=== PATIENT | male | born 1965 | race Caucasian/White ===

== ENCOUNTER 2024-12-31 01:13 | Emergency (ER) | payer SELFPAY ==
[~2024-12-31] VITALS: Ht 167.6 cm; Wt 72.6 kg
[2024-12-31] MEDS: LACTATED RINGERS 1000ML IV STA (01:42)
[2024-12-31 01:46] VITALS: BP 117/68; PULSE 73; RESP 18; TEMP 98.9; O2SAT 94
[2024-12-31 01:47] LABS: BASOPHILS # (AUTO) 0.04 K/uL (0.00-0.20); BASOPHILS % (AUTO) 0.5 % (0.0-5.0); EOSINOPHILS # (AUTO) 0.23 K/uL (0.00-0.70); EOSINOPHILS % (AUTO) 2.6 % (0.0-8.0); HEMATOCRIT 48.9 % (42-54); IMMATURE GRANULOCYTE ABSOLUTE 0.03 K/uL (0-1); LYMPHOCYTES % (AUTO) 45.4 % (21.0-51.0); MEAN CORPUSCULAR HEMOGLOBIN 31.2 pg (27.0-33.0); MEAN CORPUSCULAR HGB CONC 33.3 g/dL (32.0-36.0); MEAN CORPUSCULAR VOLUME 93.5 fL (79-99); MONOCYTES # (AUTO) 0.8 K/uL (0.1-1.0); MONOCYTES % (AUTO) 9.3 % (3.0-13.0); NEUTROPHILS # (AUTO) 3.7 K/uL (1.8-7.7); NEUTROPHILS % (AUTO) 41.9 % (40.0-77.0); PLATELET COUNT (AUTO) 203 K/uL (130-400); RED BLOOD CELL COUNT(AUTO) 5.23 MIL/uL (4.50-6.20); RED CELL DISTRIBUTION WIDTH 15.4 % (11.0-15.5); WHITE BLOOD COUNT (AUTO) 8.8 K/uL (4.8-10.8)
--- NOTE | 2024-12-31 01:53 | ERN ---
General Chief Complaint: Psych Evaluation Stated Complaint: SI Time Seen by MD: 01:18 History of Present Illness Initial Comments Patient is a 59-year-old male with asthma and alcohol abuse. He initially called [employer] because he was having shortness of breath and when they arrived he started talking about often himself. He has been drinking all day. They bring him to the hospital for a suicide watch and also nebulizer therapy. Patient does have a history of attending AA meetings in being sober for a long period of time but after his , who he met in AA, he started drinking again. Timing/Duration: 24 hours Allergies: Coded Allergies: No Known Drug Allergies (Unverified Allergy, Unknown, 12/31/24) Past Medical History Past Medical History: COPD, Hypertension Medical History Other: PTSD Past Surgical History: None Constitutional: (-) chills, (-) diaphoresis, (-) fever, (-) malaise, (-) weakness, (-) other documentation EENTM: (-) eye pain, (-) blurred vision, (-) tearing, (-) double vision, (-) ear pain, (-) ear discharge, (-) nose pain, (-) nose congestion, (-) throat pain, (-) Throat swelling, (-) mouth pain, (-) tooth pain, (-) mouth swelling, (-) other documentation Respiratory: (+) cough, (+) stridor, (+) wheezing Cardiovascular: (-) chest pain, (-) edema, (-) palpitations, (-) syncope, (-) dyspnea on exertion, (-) other documentation Gastrointestinal/Abdominal: (-) nausea, (-) vomiting, (-) diarrhea, (-) abdominal pain, (-) abdominal distention, (-) constipation, (-) rectal bleeding, (-) dark stool/melena, (-) other documentation Musculoskeletal: (-) Neck pain, (-) back pain, (-) Flank Pain, (-) joint pain, (-) joint swelling, (-) muscle pain, (-) muscle stiffness, (-) gout, (-) other documentation Skin: (-) laceration, (-) contusion, (-) abrasion, (-) abscess, (-) rash, (-) change in color, (-) change in hair, (-) change in nails, (-) diaphoresis, (-) dryness, (-) other documentation Neuro: (-) altered mental status, (-) headache, (-) syncope, (-) paralysis, (-) numbness, (-) seizure, (-) pre-existing deficit, (-) tremors, (-) weakness, (-) dizziness, (-) slurred speech, (-) vertigo, (-) other documentation Physical Exam General Appearance: (+) mild distress Orientation: (+) alert, (+) oriented x 3 Head/Face Trauma: No Eye: bilateral eye normal inspection, bilateral eye PERRL, bilateral eye EOMI Ear, Nose, Throat: (+) hearing grossly normal, (+) normal ENT inspection, (+) normal pharynx Neck: (+) normal inspection, (+) supple, (+) full range of motion Respiratory: (+) chest non-tender, (+) decreased breath sounds, (+) rhonchi, (+) stridor, (+) wheezing Heart: (+) regular, (+) no gallop Vascular: (+) no edema Gastrointestinal: (+) soft, (+) non-tender, (+) bowel sound present Results Laboratory and Microbiology Lab and Micro Result Laboratory Tests Test 12/31/24 01:40 12/31/24 02:06 White Blood Count 8.8 K/uL (4.8-10.8) Red Blood Count 5.23 MIL/uL (4.50-6.20) Hemoglobin 16.3 g/dL (14.0-18.0) Hematocrit 48.9 % (42-54) Mean Corpuscular Volume 93.5 fL (79-99) Mean Corpuscular Hemoglobin 31.2 pg (27.0-33.0) Mean Corpuscular Hemoglobin Concent 33.3 g/dL (32.0-36.0) Red Cell Distribution Width 15.4 % (11.0-15.5) Platelet Count 203 K/uL (130-400) Mean Platelet Volume 10.8 fL (7.5-10.5) H Immature Granulocyte % (Auto) 0.3 % (0-1) Neutrophils (%) (Auto) 41.9 % (40.0-77.0) Lymphocytes (%) (Auto) 45.4 % (21.0-51.0) Monocytes (%) (Auto) 9.3 % (3.0-13.0) Eosinophils (%) (Auto) 2.6 % (0.0-8.0) Basophils (%) (Auto) 0.5 % (0.0-5.0) Neutrophils # (Auto) 3.7 K/uL (1.8-7.7) Lymphocytes # (Auto) 4.0 K/uL (1.0-4.8) Monocytes # (Auto) 0.8 K/uL (0.1-1.0) Eosinophils # (Auto) 0.23 K/uL (0.00-0.70) Basophils # (Auto) 0.04 K/uL (0.00-0.20) Absolute Immature Granulocyte (auto 0.03 K/uL (0-1) Nucleated Red Blood Cells 0.0 % (0.0-0.19) Sodium Level 143 mmol/L (136-145) Potassium Level 3.5 mmol/L (3.5-5.1) Chloride Level 105 mmol/L (101-111) Carbon Dioxide Level 27 mmol/L (21-32) Blood Urea Nitrogen 14 mg/dL (7-18) Creatinine 1.1 mg/dL (0.5-1.3) Glomerular Filtration Rate Calc 77 mL/min (>90) Random Glucose 111 mg/dL (70-105) H Total Calcium 9.0 mg/dL (8.5-10.1) Salicylates Level 5.0 mg/dL (2.8-20.0) Acetaminophen Level < 1 mcg/mL (10-29) L Serum Alcohol 258 mg/dL (0-10) H Urine Color LIGHT-YELLOW (YELLOW) Urine Appearance CLEAR (CLEAR) Urine pH 5.5 (5.0-8.0) Urine Specific [place] 1.011 (1.001-1.031) Urine Protein NEGATIVE mg/dL (NEGATIVE) Urine Glucose (UA) NEGATIVE mg/dL (NEGATIVE) Urine Ketones NEGATIVE mg/dL (NEGATIVE) Urine Occult Blood NEGATIVE (NEGATIVE) Urine Nitrate NEGATIVE (NEGATIVE) Urine Bilirubin NEGATIVE mg/dL (NEGATIVE) Urine Urobilinogen 0.2 mg/dL (0.2-1.0) Urine Leukocyte Esterase NEGATIVE Wilber/uL Urine Opiates Screen NEGATIVE (NEGATIVE) Urine Barbiturates Screen NEGATIVE (NEGATIVE) Urine Phencyclidine Screen NEGATIVE (NEGATIVE) Urine Amphetamines Screen NEGATIVE (NEGATIVE) Urine Benzodiazepines Screen NEGATIVE (NEGATIVE) Urine Cocaine Screen NEGATIVE (NEGATIVE) Urine Marijuana (THC) Screen NEGATIVE (NEGATIVE) MDM I discussed with the patient going back to AA meetings. I wrote for a nebulizer therapy. I will also order salicylate, acetaminophen, urine tox screen and blood alcohol levels so that I can medically clear the patient if he decides to go into rehab. I will also get a chest x-ray. The patient left AMA. ED Course Orders Procedure Category Date Status Time Basic Metabolic Panel LAB 12/31/24 Complete 01: Cbc With Differential LAB 12/31/24 Complete 01:32 Urinalysis Profile LAB 12/31/24 Complete 01:32 Drug Screen Urine LAB 12/31/24 Complete 01:32 Acetaminophen LAB 12/31/24 Complete 01:32 Salicylate LAB 12/31/24 Complete 01:32 Lactated Ringers PHA 12/31/24 Complete 1000ml (Lactated 01:32 Alcohol, Blood LAB 12/31/24 Complete 01:40 Ipratropium/Albuterol PHA 12/31/24 Complete Neb (Duoneb) 02:00 Chest 1vw RAD 12/31/24 Logged 01:53 Ipratropium/Albuterol PHA 12/31/24 Complete Neb (Duoneb) 02:30 Current Medications Medications (Trade) Dose Ordered Sig/David Route PRN Reason Start Time Stop Time Status Last Admin Dose Admin Albuterol (DUOneb) 1 udvial Q20M PRN IH SHORTNESS OF BREATH 12/31/24 02:00 12/31/24 02:18 DC Albuterol (DUOneb) 3 udvial ONCE ONCE IH 12/31/24 02:30 12/31/24 02:31 DC Lactated Ringer's (Lactated Ringers 1000ml) 1,000 ml BOLUS STAT IV 12/31/24 01:32 12/31/24 01:38 DC 12/31/24 01:42 Vital Signs Date Time Temp Pulse Resp B/P (MAP) Pulse Ox O2 Delivery O2 Flow Rate FiO2 12/31/24 01:46 99.0 73 18 117/68 94 Nasal Cannula* 2 28 5/20/25 01:32 98.1 80 20 117/78 95 Nasal Cannula 2.0 DX & DISP Disposition: AMA Departure Impression: Primary Impression: Alcohol abuse Condition: Stable Referrals: SELF,REFERRAL (PCP) BRYAN TURNER MD December 31, 2024 01:53
[2024-12-31 01:54] LABS: CARBON DIOXIDE 27 mmol/L (21-32); CHLORIDE 105 mmol/L (101-111); CREATININE 1.1 mg/dL (0.5-1.3); GLOMERULAR FILTR. RATE CALC 77 mL/min (>90); GLUCOSE,RANDOM 111 mg/dL (70-105); POTASSIUM 3.5 mmol/L (3.5-5.1); SODIUM SERUM 143 mmol/L (136-145); UREA NITROGEN, BLOOD 14 mg/dL (7-18)
[2024-12-31 02:00] LABS: ALCOHOL, BLOOD 258 mg/dL (0-10)
[2024-12-31] MEDS ORDERED: IpraTROPium/alBUTERol SULFATE 3 ML SOLUTION IH PRN (02:00)
[2024-12-31 02:04] LABS: ACETAMINOPHEN < 1 mcg/mL (10-29)
[2024-12-31 02:27] LABS: APPEARANCE,URINE CLEAR (CLEAR); BILIRUBIN,URINE NEGATIVE (NEGATIVE); COLOR,URINE LIGHT-YELLOW (YELLOW); GLUCOSE, URINE (UA) NEGATIVE (NEGATIVE); KETONES,URINE NEGATIVE (NEGATIVE); LEUKOCYTE ESTERASE ,URINE NEGATIVE Leu/uL (NEGATIVE); NITRATE,URINE NEGATIVE (NEGATIVE); OCCULT BLOOD,URINE NEGATIVE (NEGATIVE); PH,URINE 5.5 (5.0-8.0); PROTEIN,URINE NEGATIVE (NEGATIVE); UROBILINOGEN,URINE 0.2 mg/dL (0.2-1.0)
[2024-12-31] MEDS ORDERED: IpraTROPium/alBUTERol SULFATE 3 ML SOLUTION IH ONE (02:30)
[2024-12-31 02:32] LABS: ADD UA MICROSCOPIC NO
[2024-12-31 02:34] LABS: AMPHET/METH SCREEN,URINE NEGATIVE (NEGATIVE); BARBITURATE SCREEN, URINE NEGATIVE (NEGATIVE); BENZODIAZEPINES SCREEN,URINE NEGATIVE (NEGATIVE); CANNABINOID SCREEN,URINE NEGATIVE (NEGATIVE); COCAINE SCREEN,URINE NEGATIVE (NEGATIVE); OPIATE SCREEN,URINE NEGATIVE (NEGATIVE); PHENCYCLIDINE SCREEN,URINE NEGATIVE (NEGATIVE)
--- NOTE | 2024-12-31 03:10 | NUR ---
PT LEFT AMA, PAPERWORK SIGNED AND PLACED IN THE CHART. MD AND RN EXPLAINED RISKS OF LEAVING AMA WITH PT PRESENTING WITH SOB AND DESATING ON RA. PT CONTINUED TO EXPRESS DESIRES TO LEAVE AMA. IV REMOVED, HPD INFORMED - SPOKE WITH ANNITA. [employer] MACHINE AND SECURITY INFORMED.
== END 2024-12-31 03:18 | disposition left against medical advice (07) ==
LOC: EDH 01:13
DX: F10.10 Alcohol abuse, uncomplicated (principal); I10 Essential (primary) hypertension; J44.89 Other specified chronic obstructive pulmonary disease
CPT/HCPCS: 99284; 80048; 80305; 85025; 36415; 81003; G0481